=== PATIENT | female | born 1960 | race Caucasian/White ===

== ENCOUNTER 2021-09-13 12:59 | Inpatient (IN) | payer BC, OTHER ==
[2021-09-13 14:44] LABS: #Eosinphils 0.1 10x3/uL (0.0-0.5); #Monocytes 0.4 10x3/uL (0.0-1.1); #Neutrophils 4.3 10x3/uL (1.5-8.4); %Basophils 0.6 % (0.0-2.0); %Eosinophils 1.1 % (0.0-6.0); %Monocytes 6.1 % (0.0-10.0); %Neutrophils 68.9 % (40.0-75.0); Hemoglobin 13.6 g/dL (12.0-15.5); Mean Corpuscular HGB CONC 33.6 g/dL (32.0-36.0); Mean Corpuscular Hemoglobin 29.2 pg (27.0-33.0); Mean Corpuscular Volume 87.1 fl (81.6-98.3); Mean Platelet Volume 9.6 fl (7.4-10.4); Platelet Count 219 10x3/uL (150-450); RBC Distribution Width 13.8 % (11.5-14.5); Red Blood Cell (RBC) Count 4.65 10x6/uL (3.90-5.03); White Blood Cell (WBC) Count 6.2 10x3/uL (3.5-10.5)
[2021-09-13 14:46] LABS: ALT (SGPT) 53 U/L (8-55); AST (SGOT) 43 U/L (5-34); Albumin 4.2 g/dL (3.4-4.8); Alkaline Phosphatase 73 U/L (40-110); Anion Gap 16 mmol/L (10-20); BUN (Urea Nitrogen) 23 mg/dL (9.8-20.1); Bilirubin, Total 0.8 mg/dL (0.2-1.2); Calc. Creatinine Clearance 0 mL/min (70-130); Calcium 9.2 mg/dL (7.8-10.44); Carbon Dioxide 20 mmol/L (23-31); Chloride 109 mmol/L (98-107); Globulin 2.3 g/dL (2.4-3.5); Glucose 101 mg/dL (80-115); Potassium 4.4 mmol/L (3.5-5.1); Protein, Total 6.5 g/dL (5.8-8.1); Sodium 141 mmol/L (136-145)
[2021-09-13] MEDS ORDERED: Aspirin Chewable 81 MG TAB ONE (15:13)
[2021-09-13] MEDS ORDERED: Furosemide 40 MG/4 ML VIAL ONE (15:14)
[2021-09-13] MEDS ORDERED: Nitroglycerin 2% Ointment 1 INCH/1 GM Packet ONE (15:14)
[2021-09-13 15:29] LABS: CKMB 3.6 ng/mL (0-6.6)
[2021-09-13 17:58] LABS: SARS-CoV-2 NAA Rapid Test Not Detected (NotDetected)
[2021-09-13 19:53] VITALS: BMI 23.1
[2021-09-13] MEDS ORDERED: Acetaminophen 325 MG TAB PO PRN (20:26)
[2021-09-13] MEDS: ALPRAZolam 0.25 MG TAB PO SCH (20:31)
[2021-09-13 20:42] LABS: Troponin I 0.188 ng/mL (< 0.028)
[2021-09-13 23:57] LABS: Amphetamine Detected (NotDetected); Barbiturates Screen Not Detected (NotDetected); Benzodiazepine Screen Not Detected (NotDetected); Cocaine Metabolite Screen Not Detected (NotDetected); Methadone Not Detected (NotDetected); Methamphetamine Not Detected (NotDetected); Opiate Screen Not Detected (NotDetected); Oxycodone Screen Not Detected (NotDetected); Phencyclidine (PCP) Not Detected (NotDetected); THC/Cannabinoid Screen Not Detected (NotDetected); Tricyclic Screen Not Detected (NotDetected)
[2021-09-14 04:35] LABS: #Basophils 0.1 10x3/uL (0.0-0.2); #Eosinphils 0.2 10x3/uL (0.0-0.5); #Monocytes 0.7 10x3/uL (0.0-1.1); #Neutrophils 4.1 10x3/uL (1.5-8.4); %Basophils 0.9 % (0.0-2.0); %Eosinophils 2.4 % (0.0-6.0); %Lymphocytes 25.7 % (18.0-47.0); %Monocytes 10.9 % (0.0-10.0); Hemoglobin 14.5 g/dL (12.0-15.5); Mean Corpuscular HGB CONC 33.4 g/dL (32.0-36.0); Mean Corpuscular Hemoglobin 28.9 pg (27.0-33.0); Mean Corpuscular Volume 86.6 fl (81.6-98.3); Mean Platelet Volume 9.9 fl (7.4-10.4); Platelet Count 236 10x3/uL (150-450); RBC Distribution Width 13.4 % (11.5-14.5); Red Blood Cell (RBC) Count 5.01 10x6/uL (3.90-5.03); White Blood Cell (WBC) Count 6.8 10x3/uL (3.5-10.5)
[2021-09-14 04:38] LABS: Phosphorus 3.9 mg/dL (2.3-4.7)
[2021-09-14 04:40] LABS: ALT (SGPT) 50 U/L (8-55); AST (SGOT) 41 U/L (5-34); Alkaline Phosphatase 75 U/L (40-110); Anion Gap 16 mmol/L (10-20); BUN (Urea Nitrogen) 20 mg/dL (9.8-20.1); Bilirubin, Total 0.8 mg/dL (0.2-1.2); Calc. Creatinine Clearance 71 mL/min (70-130); Calcium 9.2 mg/dL (7.8-10.44); Carbon Dioxide 23 mmol/L (23-31); Cardiac Risk 3.5 (Less than 4.5); Chloride 106 mmol/L (98-107); Cholesterol 206 mg/dl (< 200 Desired); Globulin 2.3 g/dL (2.4-3.5); Glucose 94 mg/dL (80-115); HDL Cholesterol 59 mg/dL (>60 Neg Risk); LDL Cholesterol, Calculated 131 mg/dL; Magnesium 1.9 mg/dL (1.6-2.6); Potassium 3.9 mmol/L (3.5-5.1); Protein, Total 6.3 g/dL (5.8-8.1); Sodium 141 mmol/L (136-145); Triglycerides 82 mg/dL (Less than 150)
[2021-09-14] MEDS: Aspirin 81 mg Enteric Coated Tablet PO SCH (08:16)
[2021-09-14] MEDS: Carvedilol 3.125 MG TAB PO SCH ×2 (08:16→18:54)
[2021-09-14] MEDS ORDERED: Furosemide 20 MG/2 ML VIAL SLOW IVP SCH (11:00)
[2021-09-14] MEDS ORDERED: Spironolactone 25 MG TAB PO SCH (16:00)
[2021-09-14 16:32] LABS: Ferritin 94.92 ng/mL (10-291); Thyroid Stimulating Hormone 2.1792 uIU/mL (0.35-4.94)
[2021-09-14] MEDS: Atorvastatin Calcium 40 MG TAB PO SCH (20:35)
[2021-09-14] MEDS: ALPRAZolam 0.25 MG TAB PO SCH (20:36)
[2021-09-14] MEDS: Melatonin 3 MG TAB PO SCH (20:36)
[2021-09-15 04:10] LABS: #Basophils 0.1 10x3/uL (0.0-0.2); #Eosinphils 0.2 10x3/uL (0.0-0.5); #Monocytes 0.7 10x3/uL (0.0-1.1); #Neutrophils 4.1 10x3/uL (1.5-8.4); %Basophils 0.9 % (0.0-2.0); %Eosinophils 3.1 % (0.0-6.0); %Lymphocytes 25.3 % (18.0-47.0); %Monocytes 10.5 % (0.0-10.0); %Neutrophils 60.1 % (40.0-75.0); Hemoglobin 15.7 g/dL (12.0-15.5); Mean Corpuscular HGB CONC 32.7 g/dL (32.0-36.0); Mean Corpuscular Hemoglobin 28.7 pg (27.0-33.0); Mean Corpuscular Volume 87.8 fl (81.6-98.3); Platelet Count 260 10x3/uL (150-450); RBC Distribution Width 13.5 % (11.5-14.5); Red Blood Cell (RBC) Count 5.47 10x6/uL (3.90-5.03); White Blood Cell (WBC) Count 6.9 10x3/uL (3.5-10.5)
[2021-09-15 04:30] LABS: ALT (SGPT) 48 U/L (8-55); AST (SGOT) 35 U/L (5-34); Albumin 3.9 g/dL (3.4-4.8); Alkaline Phosphatase 75 U/L (40-110); Anion Gap 15 mmol/L (10-20); BUN (Urea Nitrogen) 26 mg/dL (9.8-20.1); Bilirubin, Total 0.6 mg/dL (0.2-1.2); Calc. Creatinine Clearance 66 mL/min (70-130); Calcium 9.3 mg/dL (7.8-10.44); Carbon Dioxide 22 mmol/L (23-31); Chloride 107 mmol/L (98-107); Globulin 2.4 g/dL (2.4-3.5); Glucose 118 mg/dL (80-115); Magnesium 1.9 mg/dL (1.6-2.6); Potassium 4.1 mmol/L (3.5-5.1); Protein, Total 6.3 g/dL (5.8-8.1); Sodium 140 mmol/L (136-145)
[2021-09-15] MEDS: Aspirin 81 mg Enteric Coated Tablet PO SCH (09:03)
[2021-09-15] MEDS: Carvedilol 3.125 MG TAB PO SCH ×2 (09:04→18:26)
[2021-09-15] MEDS: Furosemide 40 MG TAB PO SCH (09:04)
[2021-09-15] MEDS: Potassium Chloride 10 MEQ TAB PO SCH (09:04)
[2021-09-15] MEDS: Melatonin 3 MG TAB PO SCH (20:15)
[2021-09-15] MEDS: ALPRAZolam 0.25 MG TAB PO SCH (20:15)
[2021-09-15] MEDS: Atorvastatin Calcium 40 MG TAB PO SCH ×2 (20:15→20:16)
[2021-09-16] MEDS ORDERED: Communication Order-Pharmacy FS SCH (00:01)
[2021-09-16 05:30] LABS: #Basophils 0.1 10x3/uL (0.0-0.2); #Eosinphils 0.2 10x3/uL (0.0-0.5); #Monocytes 0.7 10x3/uL (0.0-1.1); #Neutrophils 3.7 10x3/uL (1.5-8.4); %Basophils 0.9 % (0.0-2.0); %Eosinophils 3.4 % (0.0-6.0); %Lymphocytes 26.9 % (18.0-47.0); %Monocytes 10.8 % (0.0-10.0); %Neutrophils 57.8 % (40.0-75.0); Hemoglobin 15.4 g/dL (12.0-15.5); Mean Corpuscular HGB CONC 33.1 g/dL (32.0-36.0); Mean Corpuscular Hemoglobin 29.4 pg (27.0-33.0); Mean Corpuscular Volume 88.9 fl (81.6-98.3); Mean Platelet Volume 9.8 fl (7.4-10.4); Platelet Count 243 10x3/uL (150-450); Red Blood Cell (RBC) Count 5.23 10x6/uL (3.90-5.03); White Blood Cell (WBC) Count 6.4 10x3/uL (3.5-10.5)
[2021-09-16 06:10] LABS: ALT (SGPT) 41 U/L (8-55); AST (SGOT) 27 U/L (5-34); Albumin 3.8 g/dL (3.4-4.8); Alkaline Phosphatase 71 U/L (40-110); Anion Gap 14 mmol/L (10-20); BUN (Urea Nitrogen) 29 mg/dL (9.8-20.1); Bilirubin, Total 0.5 mg/dL (0.2-1.2); Calc. Creatinine Clearance 69 mL/min (70-130); Calcium 9.1 mg/dL (7.8-10.44); Carbon Dioxide 22 mmol/L (23-31); Chloride 108 mmol/L (98-107); Globulin 2.3 g/dL (2.4-3.5); Glucose 101 mg/dL (80-115); Magnesium 1.9 mg/dL (1.6-2.6); Phosphorus 4.2 mg/dL (2.3-4.7); Potassium 4.1 mmol/L (3.5-5.1); Protein, Total 6.1 g/dL (5.8-8.1); Sodium 140 mmol/L (136-145)
[2021-09-16] MEDS ORDERED: Nitroglycerin 50 MG/250 ML BOT 0 ML ONE (07:35)
[2021-09-16] MEDS ORDERED: Heparin 10,000 UNITS/ 10 ML VIAL ONE (07:36)
[2021-09-16] MEDS ORDERED: Adenosine 6 MG/2 ML VIAL ONE (07:39)
[2021-09-16] MEDS ORDERED: Lidocaine 1% (PF) 30 ML VIAL ONE (07:41)
[2021-09-16] MEDS ORDERED: Fentanyl 100 MCG/2 ML VIAL ONE (08:34)
[2021-09-16] MEDS ORDERED: Midazolam HCl 2 mg/2 ml Vial ONE ×2 (08:35→08:58)
[2021-09-16] MEDS: Carvedilol 3.125 MG TAB PO SCH ×2 (14:18→17:44)
[2021-09-16] MEDS: Aspirin 81 mg Enteric Coated Tablet PO SCH (14:18)
[2021-09-16] MEDS: Potassium Chloride 10 MEQ TAB PO SCH (14:18)
[2021-09-16] MEDS: Furosemide 40 MG TAB PO SCH (14:18)
[2021-09-16 15:15] LABS: Hemoglobin A1c 5.5 % (4.0-6.0)
[2021-09-16 16:39] VITALS: BP 91/57; TEMP 96.3
== END 2021-09-16 19:00 | disposition home or self-care (01) | DRG 287 ==
LOC: SUATTDRO 12:59 → CSHERS 12:59 → CSHTELE 18:28
PROVIDERS: ADMIT Family Medicine; ATTEND Nurse Practitioner Family
PROC: 4A023N7 Measurement of Cardiac Sampling and Pressure, Left Heart, Percutaneous Approach (ICD-10-PCS; principal; 2021-09-16)
PROC: B2111ZZ Fluoroscopy of Multiple Coronary Arteries using Low Osmolar Contrast (ICD-10-PCS; 2021-09-16)
PROC: B2151ZZ Fluoroscopy of Left Heart using Low Osmolar Contrast (ICD-10-PCS; 2021-09-16)
DX: I50.23 Acute on chronic systolic (congestive) heart failure (principal); I42.8 Other cardiomyopathies; I24.8 Other forms of acute ischemic heart disease; Z20.822 Contact with and (suspected) exposure to COVID-19; R77.8 Other specified abnormalities of plasma proteins; I25.10 Atherosclerotic heart disease of native coronary artery without angina pectoris; I44.7 Left bundle-branch block, unspecified; Z90.710 Acquired absence of both cervix and uterus; J45.20 Mild intermittent asthma, uncomplicated; F13.10 Sedative, hypnotic or anxiolytic abuse, uncomplicated
CPT/HCPCS: 36415; 80053; 80061; 80306; 82553; 82728; 83036; 83735; 83880; 84100; 84443; 84484; 85025; 93005; 93458; 93970; 96374; 99152; C1760; J0153; J1644; J1940; J2001; J2250; J3010; U0002